=== PATIENT | male | born 1940 | race Asian ===

== ENCOUNTER 2017-10-30 13:02 | Outpatient (CLI) | payer MEDICARE ==
[2017-10-30] MEDS ORDERED: XYLOCAINE TOPICAL 4% TP ONE (13:59)
== END 2017-10-30 13:03 | disposition home or self-care (01) ==
LOC: WOUND 13:02
PROVIDERS: ATTEND Surgery
DX: E11.622 Type 2 diabetes mellitus with other skin ulcer (principal); L97.821 Non-pressure chronic ulcer of other part of left lower leg limited to breakdown of skin; L97.811 Non-pressure chronic ulcer of other part of right lower leg limited to breakdown of skin; I89.0 Lymphedema, not elsewhere classified; E11.51 Type 2 diabetes mellitus with diabetic peripheral angiopathy without gangrene; E11.36 Type 2 diabetes mellitus with diabetic cataract; I10 Essential (primary) hypertension; G47.30 Sleep apnea, unspecified; J42 Unspecified chronic bronchitis; Z90.49 Acquired absence of other specified parts of digestive tract; Z87.891 Personal history of nicotine dependence
CPT/HCPCS: 99215; G0463

== ENCOUNTER 2017-11-06 10:44 | Outpatient (CLI) | payer MEDICARE ==
[2017-11-06] MEDS ORDERED: XYLOCAINE TOPICAL 4% TP ONE ×2 (11:06→11:14)
== END 2017-11-06 10:45 | disposition home or self-care (01) ==
LOC: WOUND 10:44
PROVIDERS: ATTEND Surgery
DX: S81.802D Unspecified open wound, left lower leg, subsequent encounter (principal); S81.801D Unspecified open wound, right lower leg, subsequent encounter; E11.51 Type 2 diabetes mellitus with diabetic peripheral angiopathy without gangrene; E11.36 Type 2 diabetes mellitus with diabetic cataract; I10 Essential (primary) hypertension; I89.0 Lymphedema, not elsewhere classified; G47.30 Sleep apnea, unspecified; J42 Unspecified chronic bronchitis; Z90.49 Acquired absence of other specified parts of digestive tract; Z87.891 Personal history of nicotine dependence; X58.XXXD Exposure to other specified factors, subsequent encounter
CPT/HCPCS: 29581; G0463

== ENCOUNTER 2017-11-13 10:55 | Outpatient (CLI) | payer MEDICARE ==
[2017-11-13] MEDS ORDERED: XYLOCAINE TOPICAL 4% TP ONE ×2 (11:09→11:14)
== END 2017-11-13 10:56 | disposition home or self-care (01) ==
LOC: WOUND 10:55
PROVIDERS: ATTEND Surgery
DX: S81.802D Unspecified open wound, left lower leg, subsequent encounter (principal); S81.801D Unspecified open wound, right lower leg, subsequent encounter; E11.51 Type 2 diabetes mellitus with diabetic peripheral angiopathy without gangrene; E11.36 Type 2 diabetes mellitus with diabetic cataract; I10 Essential (primary) hypertension; I89.0 Lymphedema, not elsewhere classified; G47.30 Sleep apnea, unspecified; J42 Unspecified chronic bronchitis; Z90.49 Acquired absence of other specified parts of digestive tract; Z87.891 Personal history of nicotine dependence; X58.XXXD Exposure to other specified factors, subsequent encounter
CPT/HCPCS: 29581

== ENCOUNTER 2017-11-20 10:53 | Outpatient (CLI) | payer MEDICARE | END 2017-11-20 10:54 | disposition home or self-care (01) | LOC: WOUND 10:53 | PROVIDERS: ATTEND Surgery | DX: S81.802D Unspecified open wound, left lower leg, subsequent encounter (principal); S81.801D Unspecified open wound, right lower leg, subsequent encounter; E11.51 Type 2 diabetes mellitus with diabetic peripheral angiopathy without gangrene; E11.36 Type 2 diabetes mellitus with diabetic cataract; I10 Essential (primary) hypertension; I89.0 Lymphedema, not elsewhere classified; G47.30 Sleep apnea, unspecified; J42 Unspecified chronic bronchitis; Z90.49 Acquired absence of other specified parts of digestive tract; Z87.891 Personal history of nicotine dependence; X58.XXXD Exposure to other specified factors, subsequent encounter | CPT/HCPCS: 29581 ==

== ENCOUNTER 2017-11-27 10:54 | Outpatient (CLI) | payer MEDICARE ==
[2017-11-27] MEDS ORDERED: AD OINTMENT TP ONE (11:22)
[2017-11-27] MEDS ORDERED: AD OINTMENT TP PRN (12:10)
== END 2017-11-27 10:55 | disposition home or self-care (01) ==
LOC: WOUND 10:54
PROVIDERS: ATTEND Surgery
DX: S81.802D Unspecified open wound, left lower leg, subsequent encounter (principal); S81.801D Unspecified open wound, right lower leg, subsequent encounter; E11.51 Type 2 diabetes mellitus with diabetic peripheral angiopathy without gangrene; E11.36 Type 2 diabetes mellitus with diabetic cataract; I10 Essential (primary) hypertension; I89.0 Lymphedema, not elsewhere classified; G47.30 Sleep apnea, unspecified; J42 Unspecified chronic bronchitis; Z90.49 Acquired absence of other specified parts of digestive tract; Z87.891 Personal history of nicotine dependence; X58.XXXD Exposure to other specified factors, subsequent encounter
CPT/HCPCS: 29581; A6250

== ENCOUNTER 2017-12-04 10:55 | Outpatient (CLI) | payer MEDICARE ==
[2017-12-04] MEDS ORDERED: AD OINTMENT TP ONE (11:54)
[2017-12-05] MEDS ORDERED: AD OINTMENT TP SCH (10:00)
== END 2017-12-04 10:56 | disposition home or self-care (01) ==
LOC: WOUND 10:55
PROVIDERS: ATTEND Surgery
DX: S81.802D Unspecified open wound, left lower leg, subsequent encounter (principal); S81.801D Unspecified open wound, right lower leg, subsequent encounter; E11.51 Type 2 diabetes mellitus with diabetic peripheral angiopathy without gangrene; E11.36 Type 2 diabetes mellitus with diabetic cataract; I10 Essential (primary) hypertension; I89.0 Lymphedema, not elsewhere classified; G47.30 Sleep apnea, unspecified; J42 Unspecified chronic bronchitis; Z90.49 Acquired absence of other specified parts of digestive tract; Z87.891 Personal history of nicotine dependence; X58.XXXD Exposure to other specified factors, subsequent encounter
CPT/HCPCS: 99213; A6250; G0463